=== PATIENT | female | born 1955 | race Caucasian/White ===

== ENCOUNTER 2020-01-11 | Emergency (ER) | payer OTHER ==
--- NOTE | 2020-01-11 21:52 | EDPHYS ---
Physician Documentation [facility] Name: Kahlil Haney Age: 64 yrs Sex: Female : 1955 Arrival Date: 01/11/2020 Time: 21:39 Bed 14 Private MD: ED Physician Srinath Lua HPI: 01/10 21:49 This 64 yrs old Female presents to ER via EMS with complaints of Mouth kb Problem. 21:49 The patient presents with possible cut . The problem is located in the hard palate. kb Onset: The symptoms/episode began/occurred just prior to arrival. Duration: The symptoms are continuous. Modifying factors: The symptoms are alleviated by nothing, the symptoms are aggravated by nothing. Associated signs and symptoms: Pertinent positives: injury to roof of mouth. Severity of symptoms: At their worst the symptoms were moderate, in the emergency department the symptoms have improved. The patient has not experienced similar symptoms in the past. The patient has not recently seen a physician. Pt states she was eating nuts and felt something sharp on the roof of her mouth, then she spit it out and noticed blood. States she came to have it looked at because she lives alone. Bleeding has since resolved. Historical: - Allergies: 21:49 Vancomycin; jb4 - PMHx: 21:49 Hypertension; Diabetes - NIDDM; jb4 - PSHx: 21:49 Cholecystectomy; Hysterectomy; jb4 - Immunization history:: Adult Immunizations up to date. - Social history:: Smoking status: Patient denies any tobacco usage or history of. ROS: 21:48 Constitutional: Negative for fever, chills, and weight loss, Cardiovascular: Negative kb for chest pain, palpitations, and edema, Respiratory: Negative for shortness of breath, cough, wheezing, and pleuritic chest pain, Abdomen/GI: Negative for abdominal pain, nausea, vomiting, diarrhea, and constipation, MS/Extremity: Negative for injury and deformity, Skin: Negative for injury, rash, and discoloration, Neuro: Negative for headache, weakness, numbness, tingling, and seizure. 21:48 ENT: Positive for cut on roof of mouth. Exam: 21:48 Constitutional: This is a well developed, well nourished patient who is awake, alert, kb and in no acute distress. Head/Face: Normocephalic, atraumatic. Skin: Warm, dry with normal turgor. Normal color with no rashes, no lesions, and no evidence of cellulitis. MS/ Extremity: Pulses equal, no cyanosis. Neurovascular intact. Full, normal range of motion. Neuro: Awake and alert, GCS 15, oriented to person, place, time, and situation. Cranial nerves II-XII grossly intact. Motor strength 5/5 in all extremities. Sensory grossly intact. Cerebellar exam normal. Normal gait. 21:48 ENT: Mouth: blood blister noted to hard palate. No active bleeding.. 21:48 Respiratory: the patient does not display signs of respiratory distress, Respirations: normal. Vital Signs: 21:42 BP 136 / 73; Pulse 83; Resp 16; Temp 98.6(O); Pulse Ox 98% on R/A; Weight 92.99 kg (R); jb4 Height 5 ft. 7 in. (170.18 cm) (R); Pain 0/10; 21:42 Body Mass Index 32.11 (92.99 kg, 170.18 cm) jb4 MDM: 21:40 Patient medically screened. kb 21:48 Data reviewed: vital signs, nurses notes. Data interpreted: Pulse oximetry: on room air kb is 98 %. Interpretation: normal. Counseling: I had a detailed discussion with the patient and/or guardian regarding: the historical points, exam findings, and any diagnostic results supporting the discharge/admit diagnosis, the need for outpatient follow up, a family practitioner, to return to the emergency department if symptoms worsen or persist or if there are any questions or concerns that arise at home. Administered Medications: No medications were administered Disposition: 01/11 16:32 Co-signature as Attending Physician, Srinath Lua MD I agree with the assessment and venkata plan of care. Disposition: 01/11/20 21:42 Discharged to Home. Impression: Blister (nonthermal) of lip and oral cavity. - Condition is Stable. - Discharge Instructions: Blisters, Adult, Mouth Laceration, [id number]. - Medication Reconciliation Form, Thank You Letter, Antibiotic Education, Prescription Opioid Use form. - Follow up: Emergency Department; When: As needed; Reason: Worsening of condition. Follow up: Private Physician; When: 2 - 3 days; Reason: Recheck today's complaints, Continuance of care, Re-evaluation by your physician. Signatures: Jennifer Delcid, FULL TIME BABYSITTER-C FULL TIME BABYSITTER-Ckb Srinath Lua MD MD cha Bryson, James, RN RN jb4 Corrections: (The following items were deleted from the chart) 01/10 21:51 21:42 01/11/2020 21:42 Discharged to Home. Impression: Blister (nonthermal) of lip and jb4 oral cavity. Condition is Stable. Forms are Medication Reconciliation Form, Thank You Letter, Antibiotic Education, Prescription Opioid Use. Follow up: Emergency Department; When: As needed; Reason: Worsening of condition. Follow up: Private Physician; When: 2 - 3 days; Reason: Recheck today's complaints, Continuance of care, Re-evaluation by your physician. kb 21:51 21:48 ENT: Mouth: blood blister noted to soft palate. No active bleeding., kb kb
--- NOTE | 2020-01-11 21:52 | ER ---
Nurse's Notes [facility] Name: Kahlil Haney Age: 64 yrs Sex: Female : 1955 Arrival Date: 01/11/2020 Time: 21:39 Bed 14 Private MD: Diagnosis: Blister (nonthermal) of lip and oral cavity Presentation: 01/10 21:42 Chief complaint: EMS states: PT was eating assorted nuts when she cut her mouth, she jb4 was worried by the blood since she lives alone and wanted to get checked out. Coronavirus screen: Client denies travel out of the [place] in the last 14 days. At this time, the client does not indicate any symptoms associated with coronavirus-19. Ebola Screen: No symptoms or risks identified at this time. Initial Sepsis Screen: Does the patient meet any 2 criteria? No. Patient's initial sepsis screen is negative. Does the patient have a suspected source of infection? No. Patient's initial sepsis screen is negative. Risk Assessment: Do you want to hurt yourself or someone else? Patient reports no desire to harm self or others. Onset of symptoms was January 11, 2020. Transition of care: patient was not received from another setting of care. 21:42 Method Of Arrival: EMS: [facility] jb4 21:42 Acuity: DENISSE 4 jb4 Historical: - Allergies: 21:49 Vancomycin; jb4 - PMHx: 21:49 Hypertension; Diabetes - NIDDM; jb4 - PSHx: 21:49 Cholecystectomy; Hysterectomy; jb4 - Immunization history:: Adult Immunizations up to date. - Social history:: Smoking status: Patient denies any tobacco usage or history of. Screenin:49 Abuse screen: Denies threats or abuse. Nutritional screening: No deficits noted. jb4 Tuberculosis screening: No symptoms or risk factors identified. Fall Risk None identified. Assessment: 21:49 General: Appears in no apparent distress. comfortable, Behavior is calm, cooperative, jb4 appropriate for age. Pain: Denies pain. Neuro: Level of Consciousness is awake, alert, obeys commands, Oriented to person, place, time, situation. Cardiovascular: Patient's skin is warm and dry. Respiratory: Airway is patent Respiratory effort is even, unlabored, Respiratory pattern is regular, symmetrical. GI: No signs and/or symptoms were reported involving the gastrointestinal system. : No signs and/or symptoms were reported regarding the genitourinary system. EENT: Blood clot noted to the roof of the mouth from reported laceration.. Derm: Skin is intact, Skin is pink, warm \T\ dry. Musculoskeletal: Circulation, motion, and sensation intact. Range of motion: intact in all extremities. Vital Signs: 21:42 BP 136 / 73; Pulse 83; Resp 16; Temp 98.6(O); Pulse Ox 98% on R/A; Weight 92.99 kg (R); jb4 Height 5 ft. 7 in. (170.18 cm) (R); Pain 0/10; 21:42 Body Mass Index 32.11 (92.99 kg, 170.18 cm) jb4 ED Course: 21:39 Patient arrived in ED. 21:40 Oni Hickey, RN is Primary Nurse. jb4 21:40 Jennifer Delcid FNP-C is [facility]. kb 21:40 Srinath Lua MD is Attending Physician. kb 21:44 Triage completed. jb4 21:49 Arm band placed on right wrist. jb4 21:49 Patient has correct armband on for positive identification. Bed in low position. Call jb4 light in reach. Side rails up X 1. 21:51 No provider procedures requiring assistance completed. Patient did not have IV access jb4 during this emergency room visit. Administered Medications: No medications were administered Outcome: 21:42 Discharge ordered by . kb 21:51 Discharged to home ambulatory. jb4 21:51 Condition: stable 21:51 Discharge instructions given to patient, Instructed on discharge instructions, follow up and referral plans. Demonstrated understanding of instructions, follow-up care. 21:51 Patient left the ED. jb4 Signatures: Jennifer Delcid FNP-C FNP-Ckb Gay, Steven, RN RN Oni Hickey RN RN [facility]
== END 2020-01-11 21:51 | disposition home or self-care (01) ==
CPT/HCPCS: 99283